=== PATIENT | male | born 1995 | race Caucasian/White ===

== ENCOUNTER 2020-07-05 08:28 | Emergency (ER) | payer SELFPAY ==
[~2020-07-05] VITALS: Ht 188 cm; Wt 117.0 kg
[2020-07-05] MEDS ORDERED: KETOROLAC 60MG/2ML VIAL IM ONE (09:00)
[2020-07-05 09:48] VITALS: BP 149/90
== END 2020-07-05 09:49 | disposition home or self-care (01) ==
LOC: ER 08:28
DX: M54.5 Low back pain (principal)
CPT/HCPCS: 96372; 99283; J1885